=== PATIENT | male | born 1960 | race Caucasian/White ===

== ENCOUNTER → 2017-02-01 | Outpatient (CLI) | payer MEDICAID | END | disposition short-term general hospital (02) | LOC: CLVASC 14:36 | DX: L97.529 Non-pressure chronic ulcer of other part of left foot with unspecified severity (principal); L98.499 Non-pressure chronic ulcer of skin of other sites with unspecified severity; F17.210 Nicotine dependence, cigarettes, uncomplicated ==

== ENCOUNTER → 2017-02-15 | Outpatient (CLI) | payer MEDICAID | END | disposition short-term general hospital (02) | LOC: CLVASC 12:34 | DX: L97.529 Non-pressure chronic ulcer of other part of left foot with unspecified severity (principal); L98.499 Non-pressure chronic ulcer of skin of other sites with unspecified severity ==